=== PATIENT | female | born 1950 | race African-American/Black ===

== ENCOUNTER 2020-11-05 00:15 | Emergency (ER) | payer MEDICARE ==
[~2020-11-05 00:15] MED LIST: NORVASC2.5 MG PO
[2020-11-05 01:26] LABS: BASOPHIL 0.4 % (0-2); EOSINOPHIL 1.8 % (0-7); HCT 38.5 % (37.0-47.0); HGB 13.1 g/dl (12.5-16.0); LYMPHOCYTE 47.1 % (15-48); MCH 29.2 pg (25.0-31.0); MCV 85.9 fL (78.0-100.0); MONOCYTE 7.6 % (0-12); MPV 9.6 fL (6.0-9.5); NEUTROPHIL 42.7 % (41-80); NRBC 0; PLT 228 K/uL (150-400); RBC 4.48 M/uL (4.20-5.40); RDW 12.8 % (11.5-14.0); WBC 5.1 K/uL (4.0-10.5)
[2020-11-05 01:40] LABS: ACETAMINOPHEN (TYLENOL) < 2.0 ug/mL (10.0-30.0); ALBUMIN 3.8 g/dL (3.4-5.0); ALKALINE PHOSHATASE 93 U/L (46-116); ALT 32 U/L (14-59); AST 30 U/L (15-37); BILIRUBIN - TOTAL 0.4 mg/dL (0.2-1.0); BUN 16 mg/dL (7-18); BUN/CREAT RATIO (CALC) 16.8 RATIO; CHLORIDE 104 mmol/L (98-107); CO2 (BICARBONATE) 27 mmol/L (21-32); CREATININE 0.95 mg/dL (0.51-0.95); GLOBULIN (CALCULATION) 4.8 g/dL; GLUCOSE 148 mg/dL (74-106); TOTAL PROTEIN 8.6 g/dL (6.4-8.2)
[2020-11-05 03:21] LABS: BILIRUBIN NEGATIVE (NEGATIVE); BLOOD TRACE-INTACT Ery/uL (NEGATIVE); CLARITY CLEAR (CLEAR); COLOR YELLOW (YELLOW); GLUCOSE (U) NORMAL (NORMAL); LEUKOCYTES TRACE Leu/uL (NEGATIVE); NITRITE NEGATIVE (NEGATIVE); PROTEIN TRACE (LOW) mg/dL (NEGATIVE); UROBILINOGEN 0.2 mg/dL (0.2-1.0)
[2020-11-05 03:23] LABS: BARBITURATES NEGATIVE (NEGATIVE); ECSTASY (MDMA) NEGATIVE (NEGATIVE); MARIJUANA (THC) NEGATIVE (NEGATIVE); METHADONE NEGATIVE (NEGATIVE); OPIATES NEGATIVE (NEGATIVE)
[2020-11-05 03:24] LABS: AMPHETAMINES NEGATIVE (NEGATIVE); OXYCODONE NEGATIVE (NEGATIVE)
[2020-11-05 03:28] LABS: BACTERIA TRACE
== END 2020-11-05 04:05 | disposition home or self-care (01) ==
LOC: FER 00:15
PROVIDERS: Emergency Medicine
DX: T38.3X1A Poisoning by insulin and oral hypoglycemic [antidiabetic] drugs, accidental (unintentional), initial encounter (principal); T44.7X1A Poisoning by beta-adrenoreceptor antagonists, accidental (unintentional), initial encounter; T46.5X1A Poisoning by other antihypertensive drugs, accidental (unintentional), initial encounter; I10 Essential (primary) hypertension; E11.9 Type 2 diabetes mellitus without complications; Z88.2 Allergy status to sulfonamides; Z79.84 Long term (current) use of oral hypoglycemic drugs; Z79.899 Other long term (current) drug therapy
CPT/HCPCS: 36415; 80053; 80305; 81001; 85025; 93005; G0480; J7030